=== PATIENT | male | born 1965 | race Hispanic/Latino ===

== ENCOUNTER 2022-05-10 06:37 | Emergency (ER) | payer BC ==
[~2022-05-10] VITALS: Ht 162.6 cm; Wt 68.0 kg
[~2022-05-10 06:37] MED LIST: (None)3.5 GM OP; GENTAMICIN SULF5 ML OP
[2022-05-10] MEDS ORDERED: GENTAMICIN SULF5 ML OD (08:01)
[2022-05-10 08:03] VITALS: BP 122/76
== END 2022-05-10 08:08 | disposition home or self-care (01) | DRG 125 ==
LOC: ED 06:37
DX: S05.01XA Injury of conjunctiva and corneal abrasion without foreign body, right eye, initial encounter (principal); X58.XXXA Exposure to other specified factors, initial encounter; Y93.H9 Activity, other involving exterior property and land maintenance, building and construction; Y92.007 Garden or yard of unspecified non-institutional (private) residence as the place of occurrence of the external cause

== ENCOUNTER 2022-09-25 07:24 | Emergency (ER) | payer BC ==
[~2022-09-25] VITALS: Ht 162.6 cm; Wt 69.5 kg
[~2022-09-25 07:24] MED LIST changes: +GENTAMICIN SULF5 ML OD
[2022-09-25] MEDS ORDERED: VOLTAREN1%GEL TOP (08:07)
[2022-09-25] MEDS ORDERED: VALACYCLOVIR HCL1 GM PO (08:07)
[2022-09-25] MEDS ORDERED: MUPIROCIN21 TOP ×2 (08:11→08:12)
[2022-09-25 08:29] VITALS: BP 132/74
== END 2022-09-25 08:35 | disposition home or self-care (01) | DRG 728 ==
LOC: ED 07:24
DX: A60.00 Herpesviral infection of urogenital system, unspecified (principal); M25.512 Pain in left shoulder